=== PATIENT | female | born 1975 | race African-American/Black ===

== ENCOUNTER 2016-08-21 18:26 | Emergency (ER) | payer MEDICARE, OTHER ==
[~2016-08-21] VITALS: Ht 172.7 cm; Wt 68.0 kg
[~2016-08-21 18:26] MED LIST: ADVAIR 250/501 PUFFS INH; ALBUTEROL SULF8.5 GM INH; ATIVAN2 MG ORAL; AUGMENTIN XR 11 EACH ORAL; AZITHROMYCIN250 MG ORAL; AZITHROMYCIN250 MG PO; BACITRACIN15 GM TOPIC; BACTRIM DS TAB1 EAC1 ORAL; COLACE100 MG ORAL; CYCLOBENZAPRINE10 MG ORAL; DAILY MULTIPLE1 EAC1 PO; ERYTHROMYCIN3.5 GM LEFT EYE; FLONASE1 SPRAYS NASAL; FOLIC ACID0.4 MG ORAL; GABAPENTIN300 MG ORAL; GABAPENTIN300 MG/61 ORAL; HYDROCODON-ACE1 EA15 ORAL; HYDROXYZINE HCL25 M1 PO; IBUPROFEN600 MG ORAL; KEFLEX500 MG ORAL; KLONOPIN0.5 MG ORAL; LAMICTAL150 MG ORAL; LEVAQUIN500 MG ORAL; LORAZEPAM1 MG ORAL; NORCO 10-325 T1 EACH ORAL; NORCO 5-325 TA1 EACH ORAL; OMEPRAZOLE20 M3 ORAL; PERCOCET 5-3251 EACH ORAL; PREDNISOLO15 MG/5 M1 ORAL; PREDNISONE10 MG ORAL; PREDNISONE20 MG ORAL; PROTONIX40 M2 PO; RANITIDINE HCL150 MG PO; REMERON15 M1 ORAL; ROBITUSSIN COU118 M4 PO; SAPHRIS10 MG SL; SILVADENE CREAM50 GM TOP; SINGULAIR10 MG ORAL; SOMA350 MG ORAL; SOMA350 MG PO; TEMAZEPAM15 MG ORAL; TOPAMAX25 M1 ORAL; TRAZODONE HCL150 MG ORAL; TYLENOL #31 TAB PO; VALIUM5 MG ORAL; WARFARIN SODIU7.5 MG ORAL; XARELTO10 MG ORAL; ZITHROMAX250 MG ORAL; ZOFRAN4 MG ORAL
[2016-08-21 19:15] VITALS: BP 123/80
[2016-08-21] MEDS ORDERED: Bacitracin Oint UD TOPIC ONE (21:00)
[2016-08-21] MEDS: Acetaminophen 500mg (ES) tab ORAL ONE (21:06)
[2016-08-21] MEDS ORDERED: Tylenol #3 tab (300mg/30mg) ORAL ONE (21:45)
--- NOTE | 2016-08-21 22:04 | Emergency Room Report ---
History of Present Illness General Chief Complaint: General Complaint Source: Patient, Medical Record Present Illness HPI 40-year-old female presents to emergency Department complaining of open lesion to the right lower lip x4 days that is sensitive and painful. Patient reports history of lesion in the past and her doctor stated it was scar tissue. Patient denies history of STDs or herpes. She also reports pain in the third and fourth toes of the left foot times one day patient states she accidentally stubbed her foot. Patient reports tenderness to palpation and pain is 10/ 10in severity, and localized to the distal aspects of the toes. Patient also reports small laceration sustained after stubbing her toe. Patient states she has a history of lupus. She denies nausea, vomiting, fevers, chills. Denies numbness tingling or loss of sensation or gross motor movements of the extremities, incontinence of bowel or bladder. Denies CP, Palpitations, LOC, AMS , dizziness, Changes in Vision, Sensation, paresthesias, or a sudden severe headache. Allergies: Coded Allergies: LITHIUM (Verified Allergy, Mild, Anaphylaxis, 05/24/13) MORPHINE (Verified Adverse Reaction, Unknown, itching, 05/09/15) Patient states tolerates PO morphine. IV causes itching Patient History Past Medical History: see triage record Past Surgical History: none Pertinent Family History: none Last Menstrual Period: 08/08/16 Now: No Immunizations: UTD Reviewed Nursing Documentation: PMH: Agreed, PSxH: Agreed Nursing Documentation-PM Past Medical History: No History, Except For Hx Cardiac Problems: Yes - Irregular heartbeat, Lupus Hx Hypertension: No - PE, DVT Hx Pacemaker: No Hx Asthma: Yes Hx COPD: No Hx Diabetes: Yes Hx Cancer: No Hx Gastrointestinal Problems: Yes - gastric bypass 2012 Hx Dialysis: No Hx Neurological Problems: No Hx Cerebrovascular Accident: No Hx Transient Ischemic Attacks: No Hx Dementia: No Hx Alzheimer's Disease: No Hx Parkinson's Disease: No Hx Meningitis: No Hx Encephalitis: No Hx Seizures: Yes Hx Epilepsy: No Hx Multiple Sclerosis: No Hx Cerebral Palsy: No Hx Amyotrophic Lat Sclerosis: No Hx Guillian-[place] Syndrome: No Hx Paralysis: No Hx Peripheral Neuropathy: No Hx Spinal Cord Injury: No Hx Head Trauma: No Hx Traumatic Brain Injury: No Hx Memory Loss: No Hx Concentration Difficulty: No Hx Speech Problem: No Hx Tremors: No Hx Vertigo: No Hx Dizziness: No Hx Syncope: No Hx Headaches: No Hx Aphasia: No Hx Dysphasia: No Hx Numbness: No Hx Weakness: No Hx Fatigue: No Hx Neurologic Surgery: No Hx Brain Shunt: No Review of Systems All Other Systems: negative except mentioned in HPI Physical Exam Vital Signs Date Time Temp Pulse Resp B/P Pulse Ox O2 Delivery O2 Flow Rate FiO2 08/21/16 18:59 98.2 100 16 123/80 100 Room Air Sp02 EP Interpretation: reviewed, normal General Appearance: no apparent distress, alert, GCS 15, non-toxic Head: normocephalic, atraumatic Eyes: bilateral eye PERRL, bilateral eye normal inspection ENT: hearing grossly normal, normal pharynx, no angioedema, normal voice, other - right side of lower lip has vessicular lesions, and some open lesions with crusting and erythema noted possible secondary infection. Neck: full range of motion, supple/symm/no masses Respiratory: chest non-tender, lungs clear, normal breath sounds, speaking full sentences Cardiovascular #1: regular rate, rhythm, no edema Musculoskeletal: back normal, gait/station normal, normal range of motion, no calf tenderness, tender - TTP to distal 3rd and 4th toes of the left foot, mild bruise noted, mild swelling. Neurologic: alert, oriented x3, responsive, motor strength/tone normal, sensory intact, speech normal Psychiatric: judgement/insight normal, memory normal, mood/affect normal, no suicidal/homicidal ideation Skin: normal inspection, normal color, normal turgor, other - small 0.2cm superficial non-bleeding laceration of the left 3rd toe Lymphatic: no adenopathy Procedures Splinting Splinting : Consent: Verbal Location: left foot Splint: walking boot Pre-Proc Neuro Vasc Exam: normal Post-Proc Neuro Vasc Exam: normal Patient Tolerated: Well Complications: None Medical Decision Making PA Attestation Dr. Poole is my supervising Physician whom patient management has been discussed with. Diagnostic Impression: Primary Impression: Oral lesion Additional Impressions: Toe fracture, left Qualified Codes: S92.535A - Nondisplaced fracture of distal phalanx of left lesser toe(s), initial encounter for closed fracture Abrasion ER Course Pt. presents to the ED c/o Painful open lesion to the right lower lip x4 days in addition to distal toe pain of the left foot status post upping her foot and sustaining a small laceration. Ddx considered but are not limited to Fracture, dislocation, contusion, Sprain/ Strain/Spasm, Epidural abscess, Neoplastic mets. Vital signs: are WNL, pt. is afebrile H&PE are most consistent with oral lesion suspicious for herpes, crusting also indicate possible secondary bacterial infection. Contusion of the left 3rd and 4th toes suspected will r/o fracture with imaging. ORDERS: - X-ray Left foot 3 views - possible distal left 3rd toe fracture, per preliminary read in ED by Dr. Poole ED INTERVENTIONS: -Tylenol #3 PO - Walking boot Splint applied to the left foot by geological technical officer. Pt. remains neurovascularly intact. -Bacitracin and band-aid is applied to the small 0.2cm superficial non-bleeding laceration of the left 3rd toe DISCHARGE: At this time pt. is stable for d/c to home. Will provide printed patient care instructions, and any necessary prescriptions. Care plan and follow up instructions have been discussed with the patient prior to discharge. Last Vital Signs Date Time Temp Pulse Resp B/P Pulse Ox O2 Delivery O2 Flow Rate FiO2 08/21/16 19:15 98.2 16 123/80 100 Room Air 08/21/16 18:59 100 Disposition: HOME, SELF-CARE Condition: Stable Scripts Cephalexin* (KEFLEX*) 500 Mg Capsule 500 MG ORAL EVERY 12 HOURS for 7 Days, #14 CAP 0 Refills Prov: Leia North P.A. 08/21/16 Acetaminophen With Codeine (T#3) (TYLENOL #3 TAB*) Y Tab 1 TAB ORAL Q6HR Y for For Pain, #10 TAB Prov: Leia North P.A. 08/21/16 Lidocaine HCl (Aspercreme) 76.5 Gm Cream..g. 1 APPLIC TP TID for For Pain, #76.5 GM Prov: Leia North P.A. 08/21/16 Valacyclovir Hcl* (VALTREX*) 500 Mg Tablet 1000 MG ORAL TWICE A DAY for 7 Days, #14 TAB Prov: Nick Northie P.A. 08/21/16 Referrals: AROLDO CASTANEDA (PCP) Patient Instructions: Toe Fracture, [id number], Valacyclovir caplets Additional Instructions: Take medications as directed. Follow up with PCP in 3-5 days * follow up with radiosonde specialist as needed * Return sooner to ED if new symptoms occur, or current symptoms become worse. Leia North Aug 21, 2016 22:04
[2016-08-21] MEDS ORDERED: ACETAMINOPHEN-1 EAC1 ORAL (22:10)
[2016-08-21] MEDS ORDERED: CEPHALEXIN500 MG ORAL (22:10)
[2016-08-21] MEDS ORDERED: ASPERCREME76.5 GM TP (22:10)
[2016-08-21] MEDS ORDERED: VALACYCLOVIR500 MG ORAL (22:10)
[2016-08-21 22:25] VITALS: BP 118/82
--- NOTE | 2016-08-29 14:59 | Diagnostic Imaging Report ---
Indications: Blunt trauma to left foot, pain Technique: 3 views left foot. Findings: Comparison: None No fracture, dislocation, joint space widening , surrounding soft tissue swelling/foreign body/other abnormality, or other acute changes are identified. IMPRESSION: No evidence of acute injury to left foot.
== END 2016-08-21 22:27 | disposition home or self-care (01) ==
LOC: EMR 19:52
DX: K13.70 Unspecified lesions of oral mucosa (principal); S92.535A Nondisplaced fracture of distal phalanx of left lesser toe(s), initial encounter for closed fracture; Z88.8 Allergy status to other drugs, medicaments and biological substances; Z88.6 Allergy status to analgesic agent; M32.9 Systemic lupus erythematosus, unspecified; Z86.711 Personal history of pulmonary embolism; Z86.718 Personal history of other venous thrombosis and embolism; J45.909 Unspecified asthma, uncomplicated; E11.9 Type 2 diabetes mellitus without complications; Z98.84 Bariatric surgery status; X58.XXXA Exposure to other specified factors, initial encounter; Y92.9 Unspecified place or not applicable; Y99.8 Other external cause status
CPT/HCPCS: 99283

== ENCOUNTER 2016-09-29 01:43 | Emergency (ER) | payer MEDICARE, OTHER ==
[~2016-09-29] VITALS: Ht 160 cm; Wt 67.6 kg
[~2016-09-29 01:43] MED LIST changes: +ACETAMINOPHEN-1 EAC1 ORAL; +ASPERCREME76.5 GM TP; +CEPHALEXIN500 MG ORAL; +VALACYCLOVIR500 MG ORAL
[2016-09-29] MEDS ORDERED: Bactrim DS (160mg/800mg) tab ORAL ONE (02:45)
[2016-09-29] MEDS ORDERED: GABAPENTIN300 MG ORAL (02:53)
[2016-09-29] MEDS ORDERED: XARELTO20 MG ORAL (02:53)
[2016-09-29] MEDS ORDERED: HYDROCODON-ACE1 EA15 ORAL (02:53)
[2016-09-29] MEDS ORDERED: PREDNISONE20 MG ORAL (02:53)
[2016-09-29] MEDS ORDERED: BACTRIM DS TAB1 EAC1 ORAL (02:53)
--- NOTE | 2016-09-29 02:54 | Emergency Room Report ---
History of Present Illness General Chief Complaint: General Complaint Source: Patient Present Illness HPI Is a 40-year-old female with history of lupus. She said she is out of her medication. She wants a refill. She also complaining of lesion on her lip and face. He getting worse. Now to her back. Denies any fever chills denies any nausea vomiting. Was draining. No other complaint. Also with generalized pain. She requesting refills on her medication. Allergies: Coded Allergies: LITHIUM (Verified Allergy, Mild, Anaphylaxis, 05/24/13) MORPHINE (Verified Adverse Reaction, Unknown, itching, 05/09/15) Patient states tolerates PO morphine. IV causes itching Patient History Past Medical History: see triage record, old chart reviewed Past Surgical History: other Pertinent Family History: none Social History: Denies: drug use Last Menstrual Period: LAST WEEK Now: No Reviewed Nursing Documentation: PMH: Agreed, PSxH: Agreed Nursing Documentation-PMH Hx Cardiac Problems: Yes - Irregular heartbeat, Lupus Hx Hypertension: No - PE, DVT Hx Pacemaker: No Hx Asthma: Yes Hx COPD: No Hx Diabetes: Yes Hx Cancer: No Hx Gastrointestinal Problems: Yes - gastric bypass 2012 Hx Dialysis: No Hx Neurological Problems: No Hx Cerebrovascular Accident: No Hx Transient Ischemic Attacks: No Hx Dementia: No Hx Alzheimer's Disease: No Hx Parkinson's Disease: No Hx Meningitis: No Hx Encephalitis: No Hx Seizures: Yes Hx Epilepsy: No Hx Multiple Sclerosis: No Hx Cerebral Palsy: No Hx Amyotrophic Lat Sclerosis: No Hx Guillian-[place] Syndrome: No Hx Paralysis: No Hx Peripheral Neuropathy: No Hx Spinal Cord Injury: No Hx Head Trauma: No Hx Traumatic Brain Injury: No Hx Memory Loss: No Hx Concentration Difficulty: No Hx Speech Problem: No Hx Tremors: No Hx Vertigo: No Hx Dizziness: No Hx Syncope: No Hx Headaches: No Hx Aphasia: No Hx Dysphasia: No Hx Numbness: No Hx Weakness: No Hx Fatigue: No Hx Neurologic Surgery: No Hx Brain Shunt: No Review of Systems Eye: Denies: blurred vision, eye pain ENT: Denies: ear pain, nose congestion, throat swelling Respiratory: Denies: cough, shortness of breath Cardiovascular: Denies: chest pain, palpitations Gastrointestinal: Denies: abdominal pain, diarrhea, nausea, vomiting Musculoskeletal: Denies: back pain, joint pain Skin: Denies: rash Neurological: Denies: headache, numbness Endocrine: Denies: increased thirst, increased urine Hematologic/Lymphatic: Denies: easy bruising All Other Systems: negative except mentioned in HPI Physical Exam Vital Signs Date Time Temp Pulse Resp B/P Pulse Ox O2 Delivery O2 Flow Rate FiO2 09/29/16 01:46 97.9 111 18 119/72 100 vitals with tachycardia Sp02 EP Interpretation: reviewed, normal General Appearance: well appearing, no apparent distress, alert Head: normocephalic, atraumatic Eyes: bilateral eye EOMI, bilateral eye PERRL ENT: hearing grossly normal, normal pharynx, other - Right face and lip: Ulcerated lesion probably from skin picking. Neck: full range of motion, supple, no meningismus Respiratory: chest non-tender, lungs clear, normal breath sounds Cardiovascular #1: regular rate, rhythm, no murmur Gastrointestinal: normal bowel sounds, non tender, no mass, no organomegaly, no bruit, non-distended Musculoskeletal: back normal, gait/station normal, normal range of motion Neurologic: alert, oriented x3 Psychiatric: mood/affect normal Skin: warm/dry, rash - Ulcerated lesion on her back. No drainage. Mild redness. Medical Decision Making Diagnostic Impression: Primary Impression: Cellulitis Qualified Codes: L03.90 - Cellulitis, unspecified Additional Impressions: Opioid dependence Qualified Codes: F11.20 - Opioid dependence, uncomplicated History of cocaine abuse Lupus (systemic lupus erythematosus) Qualified Codes: M32.9 - Systemic lupus erythematosus, unspecified Medication refill ER Course Patient with cellulitis on her face and back. Most likely from picking. This may be secondary to cocaine in or other drugs. Local and placed on antibiotics. I will refill some her medication. Last Vital Signs Date Time Temp Pulse Resp B/P Pulse Ox O2 Delivery O2 Flow Rate FiO2 09/29/16 01:46 97.9 111 18 119/72 100 Status: improved Disposition: HOME, SELF-CARE Condition: Stable Scripts Prednisone* (PREDNISONE*) 20 Mg Tablet 10 MG ORAL TID, #15 TAB Prov: CANDACE PINEDA M.D. 09/29/16 Rivaroxaban (XARELTO) 20 Mg Tablet 20 MG ORAL DAILY for 30 Days, MG 0 Refills Prov: CANDACE PINEDA M.D. 09/29/16 Gabapentin* (GABAPENTIN*) 300 Mg Capsule 300 MG ORAL THREE TIMES A DAY, #90 CAP 0 Refills Prov: CANDACE PINEDA M.D. 09/29/16 Hydrocodone/Acetaminophen 5-325* (HYDROCODONE/ACETAMINOPHEN 5-325*) 1 Each Tablet 1 TAB ORAL Q6H Y for For Pain, #15 TAB 0 Refills Prov: CANDACE PINEDA M.D. 09/29/16 Trimethoprim/Sulfamethoxazole 160/800* (BACTRIM DS TABLET*) 1 Each Tablet 1 TAB ORAL Q12H, #14 TAB 0 Refills Prov: CANDACE PINEDA M.D. 09/29/16 Referrals: NON PHYSICIAN (PCP) Additional Instructions: Followup with your DrTran in 2 to 3 days. Return if worse. CANDACE PINEDA M.D. Sep 29, 2016 02:54
[2016-09-29 03:05] VITALS: BP 119/72
== END 2016-09-29 03:05 | disposition home or self-care (01) ==
LOC: EMR 02:00
DX: M32.9 Systemic lupus erythematosus, unspecified (principal); L03.90 Cellulitis, unspecified; F11.20 Opioid dependence, uncomplicated; Z76.0 Encounter for issue of repeat prescription; E11.9 Type 2 diabetes mellitus without complications; J45.909 Unspecified asthma, uncomplicated; Z98.84 Bariatric surgery status; Z88.6 Allergy status to analgesic agent; Z88.8 Allergy status to other drugs, medicaments and biological substances; Z86.711 Personal history of pulmonary embolism; Z86.718 Personal history of other venous thrombosis and embolism
CPT/HCPCS: 99284

== ENCOUNTER 2016-11-27 03:52 | Emergency (ER) | payer MEDICARE, OTHER ==
[~2016-11-27] VITALS: Ht 160 cm; Wt 65.8 kg
[~2016-11-27 03:52] MED LIST changes: +XARELTO20 MG ORAL
[2016-11-27 05:13] LABS: BASOPHILS % (AUTO) 0.8 % (0.0-2.0); EOSINOPHILS % (AUTO) 1.8 % (0.0-3.0); LYMPHOCYTES % (AUTO) 44.2 % (20.0-45.0); MEAN CORPUSCULAR HEMOGLOBIN 24.5 PG (27.0-31.0); MEAN CORPUSCULAR HGB CONC 29.9 G/DL (32.0-36.0); MEAN CORPUSCULAR VOLUME 82 FL (80-99); MEAN PLATELET VOLUME 8.2 FL (6.5-10.1); MONOCYTES % (AUTO) 9.3 % (1.0-10.0); NEUTROPHILS % (AUTO) 43.9 % (45.0-75.0); PLATELET COUNT 273 K/UL (150-450); RED BLOOD COUNT 4.42 M/UL (4.20-5.40); RED CELL DISTRIBUTION WIDTH 16.6 % (11.6-14.8); WHITE BLOOD COUNT 4.7 K/UL (4.8-10.8)
[2016-11-27 05:23] LABS: INR 0.9 (0.9-1.1); PROTHROMBIN TIME 9.4 SEC (9.30-11.50)
[2016-11-27 05:29] LABS: ALANINE AMINOTRANSFERASE 43 U/L (3-33); ALBUMIN/GLOBULIN RATIO 1.2 (1.0-2.7); ANION GAP 15 (5-15); ASPARTATE AMINO TRANSFERASE 29 U/L (5-40); CALCIUM 8.8 mg/dL (8.6-10.2); CARBON DIOXIDE 25 mEQ/L (20-30); CHLORIDE 102 mEQ/L (98-107); CREATININE 0.7 mg/dL (0.5-0.9); GLOMERULAR FILTRATION RATE > 60 mL/min (>60); HEMOLYSIS 2; POTASSIUM 3.6 mEQ/L (3.4-4.9); SODIUM 142 mEQ/L (135-145); TROPONIN I < 0.30 ng/mL (<=0.30)
[2016-11-27 05:40] LABS: THYROID STIMULATING HORMONE 0.846 uIU/mL (0.300-4.500)
[2016-11-27] MEDS ORDERED: Bacitracin Oint UD TOPIC ONE (06:00)
[2016-11-27] MEDS ORDERED: Bactrim DS (160mg/800mg) tab ORAL ONE (06:00)
[2016-11-27 06:06] VITALS: BP 131/69
[2016-11-27 06:21] LABS: ERYTHROCYTE SEDIMENTATION RATE 34 MM/HR (0-20)
[2016-11-27] MEDS ORDERED: Albuterol ud Inhalation HHN ONE ×2 (06:30→07:30)
[2016-11-27] MEDS ORDERED: Ketorolac 30mg Inj IV ONE (06:30)
[2016-11-27] MEDS ORDERED: Tylenol #3 tab (300mg/30mg) ORAL ONE (06:45)
[2016-11-27 07:22] VITALS: BP 127/78
[2016-11-27] MEDS ORDERED: Ipratropium 0.02% Inh Soln 2.5ml UD HHN ONE (07:30)
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
[2016-11-27] MEDS ORDERED: PROMETHAZINE-D118 ML ORAL (08:14)
[2016-11-27] MEDS ORDERED: ALBUTEROL SULF8.5 GM INH (08:14)
[2016-11-27] MEDS ORDERED: BACITRACIN15 GM TOPIC (08:14)
[2016-11-27] MEDS ORDERED: BACTRIM DS TAB1 EAC1 ORAL (08:14)
[2016-11-27 09:41] VITALS: BP 132/77
--- NOTE | 2016-11-27 11:54 | Diagnostic Imaging Report ---
Indication: Chest pain Technique: One view of the chest Comparison: 01/15/2016 Findings: Lungs and pleural spaces are clear. Heart size is normal . No significant change Impression: No acute process This agrees with the preliminary interpretation provided by the emergency room physician
--- NOTE | 2016-11-27 13:40 | Cardiology Report ---
APPROVED REPORT EKG Measurement Heart [id number] ID [id number] Normal sinus rhythm T wave abnormality, consider anterior ischemia Abnormal ECG
== END 2016-11-27 09:44 | disposition home or self-care (01) ==
LOC: EMR 06:00
DX: R06.00 Dyspnea, unspecified (principal); L03.818 Cellulitis of other sites; J98.01 Acute bronchospasm; F19.10 Other psychoactive substance abuse, uncomplicated; F31.9 Bipolar disorder, unspecified; Z98.84 Bariatric surgery status; Z86.718 Personal history of other venous thrombosis and embolism; M32.9 Systemic lupus erythematosus, unspecified; Z88.6 Allergy status to analgesic agent; Z88.8 Allergy status to other drugs, medicaments and biological substances; F17.200 Nicotine dependence, unspecified, uncomplicated; E11.9 Type 2 diabetes mellitus without complications; Z86.711 Personal history of pulmonary embolism; R07.9 Chest pain, unspecified; Y09 Assault by unspecified means; Y92.009 Unspecified place in unspecified non-institutional (private) residence as the place of occurrence of the external cause; Y99.8 Other external cause status
CPT/HCPCS: 36415; 71010; 80053; 80300; 81025; 82550; 83880; 84443; 84484; 85025; 85379; 85610; 85651; 85730; 93005; 94640; 94664; 99284

== ENCOUNTER 2017-03-25 18:28 | Inpatient (IN) | payer MEDICARE, OTHER ==
[~2017-03-25] VITALS: Ht 165.1 cm; Wt 62.6 kg
[~2017-03-25 18:28] MED LIST changes: +PROMETHAZINE-D118 ML ORAL
[2017-03-25 18:42] VITALS: BP 123/78
[2017-03-25 19:25] LABS: ALANINE AMINOTRANSFERASE 18 U/L (3-33); ALBUMIN/GLOBULIN RATIO 1.6 (1.0-2.7); ANION GAP 14 (5-15); ASPARTATE AMINO TRANSFERASE 17 U/L (5-40); CALCIUM 9.2 mg/dL (8.6-10.2); CARBON DIOXIDE 24 mEQ/L (20-30); CHLORIDE 101 mEQ/L (98-107); CREATININE 0.8 mg/dL (0.5-0.9); GLOMERULAR FILTRATION RATE > 60 mL/min (>60); HEMOLYSIS 6; MAGNESIUM 2.2 mg/dL (1.7-2.5); POTASSIUM 3.5 mEQ/L (3.4-4.9); SODIUM 139 mEQ/L (135-145); TOTAL PROTEIN 6.9 g/dL (6.6-8.7)
--- NOTE | 2017-03-25 19:36 | Emergency Room Report ---
History of Present Illness General Chief Complaint: Generalized Weakness Source: Patient Present Illness HPI 41YOF BIBEMS from home for AMS Mom called EMS Patient not providing any history Previous visits indicate amphetamine, marijuana abuse. ?depression, psych history EMS said stable vitals on scene Allergies: Coded Allergies: LITHIUM (Verified Allergy, Mild, Anaphylaxis, 05/24/13) MORPHINE (Verified Adverse Reaction, Unknown, itching, 05/09/15) Patient states tolerates PO morphine. IV causes itching Patient History Past Medical History: unable to obtain Past Surgical History: unable to obtain Pertinent Family History: unable to obtain Last Menstrual Period: UNK Nursing Documentation-PMH Hx Hypertension: No - PE, DVT Hx Pacemaker: No Hx Asthma: Yes Hx COPD: No Hx Diabetes: Yes Hx Cancer: No Hx Gastrointestinal Problems: Yes - Gastric bipass Hx Dialysis: No Hx Cerebrovascular Accident: No Hx Transient Ischemic Attacks: No Hx Dementia: No Hx Alzheimer's Disease: No Hx Parkinson's Disease: No Hx Meningitis: No Hx Encephalitis: No Hx Seizures: Yes Hx Epilepsy: No Hx Multiple Sclerosis: No Hx Cerebral Palsy: No Hx Amyotrophic Lat Sclerosis: No Hx Guillian-[place] Syndrome: No Hx Paralysis: No Hx Peripheral Neuropathy: No Hx Spinal Cord Injury: No Hx Head Trauma: No Hx Traumatic Brain Injury: No Hx Memory Loss: No Hx Concentration Difficulty: No Hx Speech Problem: No Hx Tremors: No Hx Vertigo: No Hx Dizziness: No Hx Syncope: No Hx Headaches: No Hx Aphasia: No Hx Dysphasia: No Hx Numbness: No Hx Weakness: No Hx Fatigue: No Hx Neurologic Surgery: No Hx Brain Shunt: No Review of Systems All Other Systems: limited - AMS Physical Exam Vital Signs Date Time Temp Pulse Resp B/P Pulse Ox O2 Delivery O2 Flow Rate FiO2 03/25/17 18:31 100 18 122/76 16 Room Air 03/25/17 18:42 97.7 Sp02 EP Interpretation: reviewed, normal General Appearance: normal inspection, well appearing, no apparent distress, alert, GCS 15, non-toxic Head: normocephalic, atraumatic Eyes: bilateral eye EOMI, bilateral eye PERRL ENT: normal ENT inspection, hearing grossly normal, normal voice Neck: normal inspection, full range of motion, supple, no bony tend Respiratory: normal inspection, lungs clear, normal breath sounds, no respiratory distress, no retraction, no wheezing Cardiovascular #1: regular rate, rhythm, no edema Gastrointestinal: normal inspection, normal bowel sounds, non tender, soft, no guarding, no hernia Genitourinary: no CVA tenderness Musculoskeletal: normal inspection, back normal, normal range of motion, Adolfo' s Sign negative Neurologic: normal inspection, alert, responsive, transfer knitter III-XII nml as tested, motor strength/tone normal, speech normal Psychiatric: normal inspection, judgement/insight normal, mood/affect normal Skin: normal inspection, normal color, no rash Medical Decision Making Diagnostic Impression: Primary Impression: Altered mental status Qualified Codes: R41.82 - Altered mental status, unspecified Additional Impression: Polysubstance abuse ER Course Labs: No leuks. H&H stable. UA negative for UTI CT head normal Utox + for MJ, meth Was hydrated in ED Admit tele Dr Duong 934pm EKG Diagnostic Results Rate: normal Rhythm: NSR ST Segments: no acute changes ASA given to the pt in ED: No Rhythm Strip Diag. Results EP Interpretation: yes Rate: 88 Rhythm: NSR, no PVC's, no ectopy Last Vital Signs Date Time Temp Pulse Resp B/P Pulse Ox O2 Delivery O2 Flow Rate FiO2 03/25/17 18:42 97.7 92 19 123/78 100 Room Air Status: improved Disposition: ADMITTED INPATIENT Condition: Serious Referrals: NOT CHOSEN IPA/,REFERRING (PCP) ZENAIDA LINDSEY M.D. Mar 25, 2017 19:36
[2017-03-25 19:38] LABS: BASOPHILS % (AUTO) 1.4 % (0.0-2.0); EOSINOPHILS % (AUTO) 1.3 % (0.0-3.0); LYMPHOCYTES % (AUTO) 35.5 % (20.0-45.0); MEAN CORPUSCULAR HEMOGLOBIN 24.6 PG (27.0-31.0); MEAN CORPUSCULAR HGB CONC 30.7 G/DL (32.0-36.0); MEAN CORPUSCULAR VOLUME 80 FL (80-99); MEAN PLATELET VOLUME 6.9 FL (6.5-10.1); MONOCYTES % (AUTO) 7.9 % (1.0-10.0); NEUTROPHILS % (AUTO) 53.9 % (45.0-75.0); PLATELET COUNT 289 K/UL (150-450); RED BLOOD COUNT 3.89 M/UL (4.20-5.40); RED CELL DISTRIBUTION WIDTH 17.1 % (11.6-14.8)
[2017-03-25 20:36] LABS: APPEARANCE,URINE CLEAR; KETONES,URINE 1+ (NEGATIVE); LEUKOCYTE ESTERASE ,URINE 1+ (NEGATIVE); NITRITE,URINE NEGATIVE (NEGATIVE); PH,URINE 8 (4.5-8.0); PROTEIN,URINE NEGATIVE (NEGATIVE); UROBILINOGEN,URINE 4 MG/DL (0.0-1.0)
[2017-03-25 20:58] LABS: BACTERIA,URINE FEW /HPF; RBC,URINE 0-2 /HPF (0 - 2); SQUAMOUS EPITHELIAL CELL,UR FEW /LPF (NONE/OCC)
[2017-03-25 22:40] VITALS: BP 137/90
[2017-03-26] MEDS ORDERED: clonazePAM 0.5mg tab ORAL PRN
[2017-03-26] MEDS ORDERED: Milk of Magnesia 30ml Ud ORAL PRN (00:15)
[2017-03-26] MEDS: NS w/KCl 20mEq 1,000 ML IV SCH ×3 (01:00→16:30)
--- NOTE | 2017-03-26 03:45 | History and Physical Report ---
DATE OF ADMISSION: 03/25/2017 REASON FOR ADMISSION: Altered mentation. HISTORY OF PRESENT ILLNESS: This is a 41-year-old female. She lives with her daughter. She has a longstanding history of psychiatric disorder as well as substance abuse. She was hospitalized here in the past with cocaine intoxication. On this occasion, the patient is unable to give any history. She states that she wants to leave. She feels that she is being persecuted and feels unsafe. Her mother states that the patient was quite confused and exhibiting bizarre behaviors, although details are not presently available. EMS was contacted. The patient's vitals were stable on arrival. PAST MEDICAL HISTORY: Obtained from records is notable for history of DVT. In addition, the patient complained of chest pain. About a year ago, she was hospitalized and had a negative cardiac workup that included an echocardiogram and perfusion scan. MEDICATIONS: Prior to admission, reviewed and reconciled. ALLERGIES: Include lithium and morphine. SOCIAL HISTORY: Notable for substance abuse as described above. FAMILY HISTORY: Noncontributory. REVIEW OF SYSTEMS: Not obtainable from the patient. PHYSICAL EXAMINATION: GENERAL: She is belligerent. She is in no acute distress. VITAL SIGNS: Blood pressure 122/76, heart rate 100, respiratory rate 18, she is afebrile. HEENT: Pupils are equal, round, and reactive to light and accommodation. Extraocular movements intact. Oropharynx clear with no thrush. NECK: Supple with no adenopathy. No accessory muscle use. LUNGS: Clear. BREASTS: Without discrete masses. CARDIAC: Regular rhythm. Rapid rate. Normal S1 and S2 with no murmur. ABDOMEN: Soft and nontender. EXTREMITIES: No cords or edema. NEUROLOGIC: Reveals slight resting tremor, no asterixis, and symmetric strength. LABORATORY AND DIAGNOSTIC DATA: Electrocardiogram revealed sinus rhythm with no acute abnormalities. White count 6, hemoglobin 9.6, MCV 80, sodium 139, potassium 3.5, bicarbonate 24, BUN 8, and creatinine 0.8. Albumin 4.3. Urinalysis reveals 2 to 4 white cells and the toxicology screen is notable for amphetamines and marijuana. IMPRESSION: 1. Methamphetamine intoxication. 2. Toxic encephalopathy. 3. History of depression with psychosis. 4. History of deep vein thrombosis on chronic anticoagulation. 5. Microcytic anemia. 6. Mild hypovolemia and dehydration. PLAN: 1. Cardiac monitoring. 2. Psychiatric consultation. 3. Sitter for safety. 4. Avoid narcotic analgesic. 5. Continue anticoagulation. 6. Check stool for occult blood. 7. Metabolic profile. 8. Iron panel. 9. Cautious titration of psychiatric drugs. 10. Hydrate. 11. Seizure precautions. 12. Arrhythmia precautions. Mickey Duong M.D. DR: MIR JOB#: [id number] CC:
--- NOTE | 2017-03-26 10:13 | Diagnostic Imaging Report ---
Indication: Altered mental status Technique: Continuous helical CT scanning of the head was performed without intravenous contrast material. Axial and coronal 5 mm sections were generated. Radiation dose was minimized using automated exposure control Dose: Total Dose Length Product - DLP [address] Dose Index - CTDIvol(s) 70.38 mGy. Comparison: 01/15/2016 Findings: The ventricular system is normal in size and configuration. There is no shift of midline structures. No abnormal extra-axial fluid collections are noted. There is no evidence of intracerebral bleeding. No other abnormal high or low density areas are noted within the brain. Intact calvarium. There is minimal left maxillary sinus disease. Visualized orbits and sinuses are unremarkable. Impression: Normal CT scan of the head without contrast material. Minimal sinus disease This agrees with the preliminary interpretation provided overnight by [facility] teleradiology service. The CT scanner at [facility] is accredited by the [employer] [place] and the scans are performed using protocols designed to limit radiation exposure to as low as reasonably achievable to attain images of sufficient resolution adequate for diagnostic evaluation.
[2017-03-26] MEDS: LaMICtal 150mg tab ORAL SCH (10:18)
[2017-03-26 10:30] VITALS: BP 120/71
--- NOTE | 2017-03-26 11:17 | Diagnostic Imaging Report ---
Indication: SOB Technique: One view of the chest Comparison: none Findings: Lungs and pleural spaces are clear. Heart size is normal. No significant interim change Impression: No acute process
[2017-03-26 12:00] VITALS: BP 115/78
[2017-03-26 12:56] LABS: BASOPHILS % (AUTO) 0.8 % (0.0-2.0); EOSINOPHILS % (AUTO) 1.3 % (0.0-3.0); MEAN CORPUSCULAR HEMOGLOBIN 24.9 PG (27.0-31.0); MEAN CORPUSCULAR HGB CONC 30.8 G/DL (32.0-36.0); MEAN CORPUSCULAR VOLUME 81 FL (80-99); MEAN PLATELET VOLUME 6.6 FL (6.5-10.1); MONOCYTES % (AUTO) 9.3 % (1.0-10.0); NEUTROPHILS % (AUTO) 65.6 % (45.0-75.0); PLATELET COUNT 313 K/UL (150-450); RED BLOOD COUNT 4.15 M/UL (4.20-5.40); RED CELL DISTRIBUTION WIDTH 16.9 % (11.6-14.8); WHITE BLOOD COUNT 5.6 K/UL (4.8-10.8)
[2017-03-26 13:10] LABS: ALANINE AMINOTRANSFERASE 17 U/L (3-33); ALBUMIN/GLOBULIN RATIO 1.5 (1.0-2.7); ANION GAP 12 (5-15); ASPARTATE AMINO TRANSFERASE 15 U/L (5-40); CALCIUM 8.8 mg/dL (8.6-10.2); CARBON DIOXIDE 22 mEQ/L (20-30); CHLORIDE 104 mEQ/L (98-107); CREATININE 0.6 mg/dL (0.5-0.9); GLOMERULAR FILTRATION RATE > 60 mL/min (>60); HEMOLYSIS 1; MAGNESIUM 1.9 mg/dL (1.7-2.5); POTASSIUM 3.9 mEQ/L (3.4-4.9); SODIUM 138 mEQ/L (135-145)
[2017-03-26 13:15] LABS: HEMOLYSIS 3; IRON 65 ug/dL (37-145); TOTAL IRON BINDING CAPACITY 580 ug/dL (250-400)
[2017-03-26 13:21] LABS: THYROID STIMULATING HORMONE 0.671 uIU/mL (0.300-4.500)
[2017-03-26 13:26] LABS: AMMONIA 28 umol/L (11-51)
[2017-03-26 16:00] VITALS: BP 106/61
[2017-03-26] MEDS: Xarelto 10mg tab ORAL SCH (17:55)
--- NOTE | 2017-03-26 19:53 | Consultation ---
History of Present Illness General Chief Complaint: Generalized Weakness Present Illness HPI 41-year-old female. the pt has hx of psychotic d/o, bipolar and ptsd. She lives with her daughter. She has a longstanding history of psychiatric disorder as well as substance abuse. She was hospitalized here in the past with cocaine intoxication. the pt apparently was confused this am however during my eval the pt was lucid, she was delusional and had poor insight and judgement Allergies: Coded Allergies: LITHIUM (Verified Allergy, Mild, Anaphylaxis, 05/24/13) MORPHINE (Verified Adverse Reaction, Unknown, itching, 05/09/15) Patient states tolerates PO morphine. IV causes itching Medication History Scheduled Albuterol Sulfate* (Albuterol Sulfate Mdi*), 2 PUFF INH Q6H Bacitracin (Bacitracin), 1 APPLIC TOPIC BID Clonazepam* (Klonopin*), 0.5 MG ORAL DAILY, (Reported) Gabapentin* (Gabapentin*), 300 MG ORAL THREE TIMES A DAY, (Reported) Gabapentin* (Gabapentin*), 300 MG ORAL THREE TIMES A DAY Lamotrigine* (Lamictal*), 125 MG ORAL DAILY, (Reported) Multivitamin (Daily Multiple Vitamin), 1 EACH PO DAILY, (Reported) Prednisone* (Prednisone*), 10 MG ORAL TID Rivaroxaban (Xarelto), 20 MG ORAL DAILY Trazodone* (Trazodone*), 50 MG ORAL BEDTIME, (Reported) Trimethoprim/Sulfamethoxazole 160/800* (Bactrim Ds Tablet*), 1 TAB ORAL Q12H Trimethoprim/Sulfamethoxazole 160/800* (Bactrim Ds Tablet*), 1 TAB ORAL Q12H Scheduled PRN Acetaminophen With Codeine (T#3) (Tylenol #3 Tab*), 1 TAB ORAL Q6HR PRN for For Pain D-Methorphan Hb/Prometh Hcl* (Promethazine-Dm Syrup*), 5 ML ORAL Q6H PRN for For Cough Hydrocodone/Acetaminophen 5-325* (Hydrocodone/Acetaminophen 5-325*), 1 TAB ORAL Q6H PRN for For Pain Patient History History Provided By: Patient, Medical Record, PMD Healthcare decision maker Resuscitation status Full Code Advanced Directive on File No Review of Systems Psychiatric: Reports: anxiety, depressed feelings, emotional problems, hallucinations, prior hx Physical Exam General Appearance: no apparent distress, alert Neurologic: alert, oriented x 3, responsive, depressed affect Last 24 Hour Vital Signs Date Time Temp Pulse Resp B/P Pulse Ox O2 Delivery O2 Flow Rate FiO2 03/26/17 18:54 97.4 03/26/17 16:00 97.4 87 19 106/61 98 Room Air 03/26/17 12:00 97.7 95 21 115/78 99 Room Air 03/26/17 10:30 97.7 96 14 120/71 100 Room Air 03/26/17 03:47 91 03/26/17 00:14 91 03/25/17 23:22 87 03/25/17 23:03 97.7 92 19 137/90 100 Room Air 78 03/25/17 22:40 97.7 78 19 137/90 100 Room Air Intake and Output 03/25/17 03/26/17 19:00 07:00 Intake Total 0 ml Output Total 175 ml Balance 0 ml -175 ml Intake Oral 0 ml Output Urine Total 175 ml Laboratory Tests Test 03/25/17 20:25 03/26/17 12:30 Urine Color Yellow Urine Appearance Clear Urine pH 8 (4.5-8.0) Urine Specific [place] 1.015 (1.005-1.035) Urine Protein Negative (NEGATIVE) Urine Glucose (UA) Negative (NEGATIVE) Urine Ketones 1+ (NEGATIVE) H Urine Occult Blood Negative (NEGATIVE) Urine Nitrite Negative (NEGATIVE) Urine Bilirubin Negative (NEGATIVE) Urine Urobilinogen 4 MG/DL (0.0-1.0) H Urine Leukocyte Esterase 1+ (NEGATIVE) H Urine RBC 0-2 /HPF (0 - 2) Urine WBC 2-4 /HPF (0 - 2) Urine Squamous Epithelial Cells Few /LPF (NONE/OCC) Urine Bacteria Few /HPF (NONE) Urine Opiates Screen Negative (NEGATIVE) Urine Barbiturates Screen Negative (NEGATIVE) Phencyclidine (PCP) Screen Negative (NEGATIVE) Urine Amphetamines Screen Positive (NEGATIVE) H Urine Benzodiazepines Screen Negative (NEGATIVE) Urine Cocaine Screen Negative (NEGATIVE) Urine Marijuana (THC) Screen Positive (NEGATIVE) H White Blood Count 5.6 K/UL (4.8-10.8) Red Blood Count 4.15 M/UL (4.20-5.40) L Hemoglobin 10.3 G/DL (12.0-16.0) L Hematocrit 33.6 % (37.0-47.0) L Mean Corpuscular Volume 81 FL (80-99) Mean Corpuscular Hemoglobin 24.9 PG (27.0-31.0) L Mean Corpuscular Hemoglobin Concent 30.8 G/DL (32.0-36.0) L Red Cell Distribution Width 16.9 % (11.6-14.8) H Platelet Count 313 K/UL (150-450) Mean Platelet Volume 6.6 FL (6.5-10.1) Neutrophils (%) (Auto) 65.6 % (45.0-75.0) Lymphocytes (%) (Auto) 23.0 % (20.0-45.0) Monocytes (%) (Auto) 9.3 % (1.0-10.0) Eosinophils (%) (Auto) 1.3 % (0.0-3.0) Basophils (%) (Auto) 0.8 % (0.0-2.0) Sodium Level 138 mEQ/L (135-145) Potassium Level 3.9 mEQ/L (3.4-4.9) Chloride Level 104 mEQ/L (98-107) Carbon Dioxide Level 22 mEQ/L (20-30) Anion Gap 12 (5-15) Blood Urea Nitrogen 7 mg/dL (7-23) Creatinine 0.6 mg/dL (0.5-0.9) Estimat Glomerular Filtration Rate > 60 mL/min (>60) Glucose Level 50 mg/dL (74-106) L Calcium Level 8.8 mg/dL (8.6-10.2) Magnesium Level 1.9 mg/dL (1.7-2.5) Iron Level 65 ug/dL (37-145) Total Iron Binding Capacity 580 ug/dL (250-400) H Percent Iron Saturation 11 % (15-50) L Unsaturated Iron Binding 515 ug/dL (112-346) H Total Bilirubin 0.3 mg/dL (0.0-1.2) Aspartate Amino Transf (AST/SGOT) 15 U/L (5-40) Alanine Aminotransferase (ALT/SGPT) 17 U/L (3-33) Alkaline Phosphatase 69 U/L (35-104) Ammonia 28 umol/L (11-51) Total Protein 7.0 g/dL (6.6-8.7) Albumin 4.2 g/dL (3.5-5.2) Globulin 2.8 g/dL Albumin/Globulin Ratio 1.5 (1.0-2.7) Vitamin B12 Level 194 pg/mL (211-946) L Vitamin D 25-Hydroxy Pending 25-Hydroxy Vitamin D2 Pending 25-Hydroxy Vitamin D3 Pending Folate Pending Thyroid Stimulating Hormone (TSH) 0.671 uIU/mL (0.300-4.500) Human Chorionic Gonadotropin, Qual Negative Height (Feet): 5 Height (Inches): 5.00 Weight (Pounds): 138 Medications Current Medications Medications (Trade) Dose Ordered Sig/Soha Route PRN Reason Start Time Stop Time Status Last Admin Dose Admin Acetaminophen (Tylenol) 650 mg Q4H PRN ORAL Mild Pain/Temp > 100.5 03/26/17 00:00 04/25/17 00:00 03/26/17 17:55 Clonazepam (KlonoPIN) 0.5 mg Q6H PRN ORAL For Anxiety 03/26/17 00:00 04/02/17 00:00 Gabapentin (Neurontin) 300 mg THREE TIMES A DAY ORAL 03/26/17 00:15 04/25/17 00:14 03/26/17 19:42 Lamotrigine 150 mg 150 mg DAILY ORAL 03/26/17 09:00 04/25/17 08:59 03/26/17 10:18 Magnesium Hydroxide (Mom) 30 ml HSPRN PRN ORAL Constipation 03/26/17 00:15 04/25/17 00:14 Rivaroxaban (Xarelto) 20 mg QPM ORAL 03/26/17 16:30 04/25/17 16:29 03/26/17 17:55 Sodium Chloride (NS w/KCl 20mEq) 1,000 ml @ 125 mls/hr Q8H IV 03/26/17 00:30 04/25/17 00:29 03/26/17 10:19 Trazodone HCl (Desyrel) 150 mg BEDTIME ORAL 03/26/17 21:00 04/25/17 20:59 Assessment/Plan Status: stable Assessment/Plan the pt is psychotic and anxious the pt has poor insight into her mental condition. the pt was reluctant to take meds. the pt maybe suffering from mild delirium as she has episodes of confusion -risperdal 2mg qhs Kenia Terrell M.D. Mar 26, 2017 19:53
[2017-03-26 20:00] VITALS: BP 116/61
[2017-03-26] MEDS: TraZODone 100mg tab ORAL SCH ×2 (20:31→20:33)
[2017-03-27] VITALS: BP 117/72
[2017-03-27] MEDS: NS w/KCl 20mEq 1,000 ML IV SCH ×2 (00:41→09:30)
--- NOTE | 2017-03-27 01:45 | Progress Note ---
DATE: 03/26/2017 INTERNAL MEDICINE PROGRESS NOTE SUBJECTIVE: Psychiatric evaluation was noted. The patient was awake, alert and today although with some delusions and poor insight as well as judgment. The patient complained of left lower tooth pain and poor appetite as well as low back pain. OBJECTIVE: VITAL SIGNS: Afebrile. Blood pressure 106/61, pulse 87, and respirations 19. HEENT: poor dentition but no focal abscess. NECK: Supple. LUNGS: Clear. CARDIAC: Regular rhythm and rate. Normal S1 and S2 with no murmur. ABDOMEN: Soft. EXTREMITIES: Trace edema. NEUROLOGIC: Nonfocal. LABORATORY DATA: Reviewed. IMPRESSION: 1. Toxic encephalopathy. 2. Depression with psychosis. 3. Possible left lower tooth caries. 4. History of deep venous thrombosis and pulmonary embolus, on chronic anticoagulation. 5. Lumbosacral strain. 6. Substance abuse. 7. Amphetamine and marijuana intoxication. 8. Prior history of cocaine intoxication. PLAN: Neuroleptics per psychiatrist, oral antibiotics for possible tooth infection. Continue full anticoagulation with rivaroxaban. X-rays of the lumbar spine. Hydrate. Withdrawal precautions. Mickey Duong M.D. DR: LUIS JOB#: [id number] CC:
[2017-03-27 04:00] VITALS: BP 111/70
[2017-03-27 06:06] LABS: KETONES,URINE NEGATIVE (NEGATIVE); LEUKOCYTE ESTERASE ,URINE 1+ (NEGATIVE); NITRITE,URINE NEGATIVE (NEGATIVE); PH,URINE 6.5 (4.5-8.0); PROTEIN,URINE NEGATIVE (NEGATIVE); UROBILINOGEN,URINE NORMAL MG/DL (0.0-1.0)
[2017-03-27 06:20] LABS: APPEARANCE,URINE CLEAR
[2017-03-27 06:22] LABS: SQUAMOUS EPITHELIAL CELL,UR FEW /LPF (NONE/OCC); WBC,URINE 0-2 /HPF (0 - 2)
[2017-03-27 07:49] VITALS: BP 105/64
--- NOTE | 2017-03-27 09:27 | Diagnostic Imaging Report ---
Indication: PAIN Technique: 4 views of the lumbar spine Comparison: None Findings: Bony alignment is normal. Your body heights are preserved. The disc spaces are preserved. Pedicles are intact. Sacral arches are preserved. Sacral iliac joint spaces are preserved surgical clips are seen in the right upper quadrant. Surgical anastomotic lydia are seen in the left upper quadrant. Impression: No acute process. Findings as noted
[2017-03-27] MEDS: LaMICtal 150mg tab ORAL SCH (09:29)
[2017-03-27] MEDS: Xarelto 10mg tab ORAL SCH (09:29)
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
[2017-03-27 15:50] VITALS: BP 109/71
[2017-03-27 20:00] VITALS: BP 104/59
[2017-03-27] MEDS: TraZODone 100mg tab ORAL SCH (21:00)
[2017-03-28] VITALS (7 sets, daily range): BP systolic 100–123; BP diastolic 57–73
[2017-03-28] MEDS: Cyclobenzaprine 10mg Tab ORAL SCH ×3 (00:30→18:23)
[2017-03-28] MEDS ORDERED: Iron Sucrose 100 MG in NS 55 ML IV ONE (02:15)
[2017-03-28] MEDS ORDERED: Cyclobenzaprine 10mg Tab ORAL SCH (09:00)
[2017-03-28] MEDS: LaMICtal 150mg tab ORAL SCH (09:02)
[2017-03-28] MEDS ORDERED: NS 275ml ONE (10:12)
--- NOTE | 2017-03-28 12:30 | Progress Note ---
DATE: 03/27/2017 INTERNAL MEDICINE PROGRESS NOTE SUBJECTIVE: The patient is more interactive and appropriate and had conversation today. Tooth pain has improved. The patient was compliant with medications other than Risperdal and trazodone. OBJECTIVE: VITAL SIGNS: Still, the patient is afebrile. NECK: Supple. LUNGS: Clear. CARDIAC: Regular. ABDOMEN: Soft. EXTREMITIES: Trace edema. IMPRESSION: 1. Substance abuse. 2. Toxic encephalopathy. 3. Bipolar disorder with psychosis. 4. Systemic lupus. 5. History of deep vein thrombosis and pulmonary embolus, on anticoagulation. 6. Severe iron deficiency. PLAN: occult blood. Add intravenous iron. Rheumatology consult to follow. Psych therapy. Withdrawal precautions. Continue antibiotics for oral caries. Outpatient dental management. Discontinue telemetry. Mickey Duong M.D. DR: Amaris JOB#: [id number] CC:
--- NOTE | 2017-03-28 12:45 | Consultation ---
DATE OF CONSULTATION: NOTE: POOR AUDIO QUALITY RHEUMATOLOGICAL CONSULTATION CONSULTING PHYSICIAN: Marley Orlando M.D. REASON FOR CONSULTATION: I was asked by Dr. Duong to assess this 41-year-old patient with admission to [facility]. HISTORY OF PRESENT ILLNESS: The patient lives own home and has been in stable condition. Over the last several months, she has a complex past medical history of connective tissue disease that includes according to the patient, lupus anticoagulant syndrome. She was found to have systemic lupus erythematosus. She was admitted because of chest tightness and swallowing disorder and the patient had a history of deep vein thrombosis in 2013 on two different occasions. She has been on Xarelto and since she did not have any hypercoagulable syndrome event over the last four years, however, she to have any pericarditis, pruritus, renal failure, hemolytic anemia, and leukopenia. No FAREBOX REPAIRER lupus. Therefore, she does not really fulfill criteria for systemic lupus. More detailed examination revealed that the patient has fibromyalgia. She has diffuse articular pain without swelling in more than 16 joints. She has morning stiffness less than 1 hour. She has a poor sleep. She wakes up tired. She has cold sensitivity. She has recent onset of concentration problem and memory problem. The patient does not have any systemic disease that can explain the joint pain of four years without any swelling or internal organ involvement. In addition, the patient that she has digit in the upper extremity ____ is exposure to cold, which by history fulfills criteria of Raynaud syndrome. previous medical history of the patient is complex autoimmune marker will be available. ALLERGIES: The patient is allergic to morphine and lithium. MEDICATIONS: The patient is on trazodone 150 mg at bedtime, risperidone 2 mg at bedtime. She is on 20 mg daily for hypercoagulable disorder. She is on lamotrigine 150 mg daily, gabapentin 300 mg t.i.d., 0.5 mg every six hours. She does take cyclobenzaprine 10 mg p.o. t.i.d., which is usually given to she has never been managed by a mailroom coordinator even though she has appointment for mailroom coordinator, but could not attend because of the distance. FAMILY HISTORY: The patient is adopted and she does not know anything about her parents. She has no brother and no sister. She has two children in good health. One child is 11 and other child is 5 years old, both and delivery were uneventful even though in the last , the patient developed preeclampsia. HABITS: The patient smokes intermittently half pack a day for more than 20 years. She had alcoholic problem until few years ago. Now, she drinks socially apparently and she does use drugs, amphetamine and cocaine. The she was using recently. REVIEW OF SYSTEMS: Cardiovascular: Currently, the patient denied any chest pain, shortness of breath, palpitation, or dizziness. Pulmonary: The patient denied any cough, wheezing, or expectoration. Gastrointestinal: Her appetite is moderate, but she said she has a history of losing 40 pounds in the last year. , she has no dysphagia and any dyspepsia. Bowel movement was daily. Genitourinary: The patient denied any dysuria or frequency. She does have stress, but not incontinence, nocturia is 2 to 3. Joint: The patient denied any swelling and stiffness is 20 to 50 minutes and resolved by . Neurologic: She has no numbness, tingling, or seizure disorder, has intermittent migraine. PHYSICAL EXAMINATION: VITAL SIGNS: Blood pressure is 104/69, pulse is 91, respirations 20, and temperature was 98.1. HEENT: Eyes were normal. Pupils were round, equal, and reactive to light. Sclerae were white. Conjunctiva was pink. Extraocular movements are normal. Temporal arteries were palpable bilaterally. There was questionable bilateral temporal wasting. Visual chávez to confrontation was normal and neglect sign was negative. ENT, mucous membranes were not dehydrated. Auditory canals were clear and tympanic membranes could not be visualized. Nasal cavity was not congested. Nasal septum was intact. Soft palate was free of ulceration. Pharynx was clear from exudate or tonsillar hypertrophy. Uvula silviano to phonation. Tongue was moist, midline, and normally papillated. NECK: Supple. There was no goiter. No mass. No lymphadenopathy. There was no JVD. No bruits. Carotid upstroke was 2+. LUNGS: Clear. HEART: PMI was in the fourth left intercostal space in midclavicular line. There was normal S1 and normal S2. There was no murmur. No arrhythmia. No S3. No S4. No pericardial rub. ABDOMEN: Soft and nontender without organomegaly. There was no mass palpable. There was normal bowel sounds without bruits. There was no guarding. No rebound tenderness. No ascites. No hernia. No CVA tenderness. Liver span was 8 cm, mostly nontender. EXTREMITIES: No cyanosis, no clubbing, and no edema. Extremities were warm. NEUROLOGIC: Reflexes in biceps, triceps, and brachioradialis were present. Patellar retinaculum were present. Plantar were in flexion. Cranial nerves II through XII were symmetric and equal. Cerebellar function, there was no tremor. No nystagmus. No extrapyramidal rigidity. Sensory exam to pinprick, cotton touch, position are grossly normal. Motor strength was 5/5 against resistance in the upper and lower extremities in proximal and distal muscles. LABORATORY AND DIAGNOSTIC DATA: Hemoglobin is 10.3, hematocrit 33.6 with MCV of 81, WBC of 5.6, and platelets of 313,000. Her BUN and creatinine is 7 and 0.6 respectively. Her sodium is 138, potassium 3.9, chloride 104, and CO2 is 22. SGOT and SGPT were normal as well as albumin and globulin. Vitamin D 25-hydroxy is pending. Folate is normal. TSH is normal. Admit head CT is negative. Her iron was 55 and saturation was 11. Urine for tox screen was positive for marijuana, was positive for amphetamine. Negative to acetone and negative for cocaine. Urine test showed 10 to 15 RBCs, 0.2 WBC per high-power field. Protein was negative. The patient had CT scan of the head, which revealed system is normal were normal. There was no evidence of intracranial bleed. There was disease. ____ impression was normal CT and minimal disease. Her chest x-ray showed no active disease. Her lumbar spine right upper quadrant of the abdomen. The patient underwent cholecystectomy 2014. IMPRESSION: I thought ___ the patient has systemic lupus. She does . She has a history of deep vein thrombosis and pulmonary emboli and the presence of lupus anticoagulant. 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 PLAN: The patient basis marker for autoimmune inflammatory will be taken. Thank you, Dr. Duong, to allow me to participate in the care of this patient. Marley Orlando M.D. DR: BUDDY JOB#: [id number] CC:
[2017-03-28] MEDS ORDERED: clonazePAM 0.5mg tab ORAL PRN (18:00)
--- NOTE | 2017-03-28 18:45 | Progress Note ---
DATE: 03/28/2017 SUBJECTIVE: The patient is doing well, was eating. No behavior issues. Calm and cooperative. The patient is hyperverbal and started on antidepressant. MENTAL STATUS EXAMINATION: The patient is alert and oriented times self, place, and situation she is in. Mood is dysphoric. Affect is constricted. Congruent mood. Thought process is concrete. Thought content, no suicidal or homicidal ideation. ASSESSMENT: Schizoaffective disorder, bipolar type versus bipolar with psychotic features. PLAN: 1. The patient will continue on current medication, which is risperidone. 2. Provide the patient with supportive therapy and reality orientation. Kenia Terrell M.D. DR: CHRISSIE JOB#: [id number] CC:
[2017-03-28] MEDS: Milk of Magnesia 30ml Ud ORAL PRN (18:55)
[2017-03-28] MEDS: TraZODone 50mg tab ORAL SCH ×2 (20:53→21:00)
[2017-03-28] MEDS ORDERED: Iron Sucrose 100 MG in NS 55 ML IV SCH ×4 (21:00)
[2017-03-29] VITALS: BP 122/66
[2017-03-29 04:00] VITALS: BP 98/62
--- NOTE | 2017-03-29 04:45 | Progress Note ---
DATE: 03/28/2017 INTERNAL MEDICINE PROGRESS NOTE SUBJECTIVE: The patient is refusing her psychiatric medications. She is interactive and verbal. Her appetite has improved. OBJECTIVE: VITAL SIGNS: Blood pressure 122/66, pulse 73, and respirations 18. HEENT: Oropharynx clear. No tender teeth. LUNGS: Clear. CARDIAC: Regular. ABDOMEN: Soft. EXTREMITIES: No edema. LABORATORY DATA: Reviewed. IMPRESSION: 1. Substance abuse status post intoxication with amphetamine. 2. Iron deficiency. 3. History of deep venous thrombosis, on anticoagulation. 4. Possible systemic lupus. 5. Fibromyalgia. 6. Depression with agitation and psychosis. 7. B12 deficiency. PLAN: 1. Iron replacement. 2. Rheumatology workup with diagnostic studies noted. They can be followed up as an outpatient. 3. Outpatient endoscopy to be planned. 4. Psychiatric followup as an outpatient. 5. The patient refuses other medications. 6. B12 supplementation initiated. Mickey Duong M.D. DR: TONE JOB#: [id number] CC:
[2017-03-29 06:09] LABS: VITAMIN D 25-OH TOTAL 16 ng/mL (.)
[2017-03-29 07:45] VITALS: BP 103/68
[2017-03-29] MEDS ORDERED: LaMICtal 150mg tab ORAL SCH (09:00)
[2017-03-29] MEDS ORDERED: Vitamin B-12 100mcg tab ORAL SCH (09:00)
[2017-03-29] MEDS: Cyclobenzaprine 10mg Tab ORAL SCH ×2 (09:07→17:07)
[2017-03-29] MEDS: Milk of Magnesia 30ml Ud ORAL PRN (09:07)
[2017-03-29 11:35] VITALS: BP 106/67
--- NOTE | 2017-03-29 12:40 | Cardiology Report ---
APPROVED REPORT EKG Measurement Heart [id number] MA [id number] Normal sinus rhythm Nonspecific T wave abnormality Prolonged QT Abnormal ECG
[2017-03-29 16:00] VITALS: BP 108/69
--- NOTE | 2017-03-29 16:06 | General Progress Note ---
Assessment/Plan Assessment/Plan bipolar d/o, schizoaffective ptsd -cont riperdal -dpesnt meet the criteria for hold -delirium resolved. Subjective Neurologic/Psychiatric: Reports: anxiety, depressed, emotional problems Allergies: Coded Allergies: LITHIUM (Verified Allergy, Mild, Anaphylaxis, 05/24/13) MORPHINE (Verified Adverse Reaction, Unknown, itching, 05/09/15) Patient states tolerates PO morphine. IV causes itching Subjective the pt doesn't believe that she need meds. poor insight, she doesn't believe she needs meds/ Objective Last 24 Hour Vital Signs Date Time Temp Pulse Resp B/P Pulse Ox O2 Delivery O2 Flow Rate FiO2 03/29/17 15:13 97.9 03/29/17 11:35 97.9 86 19 106/67 99 Room Air 03/29/17 07:45 97.7 72 19 103/68 100 Room Air 03/29/17 04:00 97.3 84 18 98/62 100 Room Air 03/29/17 00:00 97.5 73 18 122/66 100 Room Air 03/28/17 20:00 97.8 84 18 105/73 100 Room Air 03/28/17 18:55 98.4 03/28/17 18:17 98.4 80 17 100/57 99 Room Air Intake and Output 03/28/17 03/29/17 19:00 07:00 Intake Total 500 ml 510 ml Balance 500 ml 510 ml Intake Oral 500 ml 450 ml IV Total 60 ml # Voids 2 3 Height (Feet): 5 Height (Inches): 5.00 Weight (Pounds): 138 General Appearance: no apparent distress, alert, thin Neurologic: alert, oriented x 3, responsive, depressed affect Kenia Terrell M.D. Mar 29, 2017 16:06
[2017-03-29] MEDS ORDERED: Vitamin B12 1000mcg/ml Inj IM ONE (17:00)
[2017-03-29] MEDS ORDERED: Vitamin D 1000 IU Tab ORAL SCH (18:00)
--- NOTE | 2017-03-29 18:02 | Progress Note ---
DATE: 03/28/2017 SUBJECTIVE: The patient is awake, alert, afebrile, and hemodynamically stable. PHYSICAL EXAMINATION: VITAL SIGNS: Blood pressure 105/73, pulse 84, respirations 18, and temperature 97.8. HEENT: Eyes were normal. ENT, mucous membranes were moist and intact. NECK: Supple with no JVD and without lymph nodes. LUNGS: Clear. HEART: Normal sounds with regular beats. ABDOMEN: Soft and nontender with normal bowel sounds. EXTREMITIES: Warm without cyanosis, clubbing, or edema. The patient has been followed today by the primary care physician Dr. Duong. Laboratory Data: Revealed hemoglobin is 10.3, hematocrit 33.3 with MCV of 81, WBC of 5.6 and platelets 313,000. Her ESR is 34. BUN and creatinine is 7 and 0.6 respectively. Sodium was 138, potassium 3.9, chloride 104, CO2 is 22. Liver function tests are normal. Vitamin B12 normal. O2 saturation was 11. 02:23 pending and inflammatory marker are pending as well. Stool for occult blood was negative. Persantine echocardiogram 02:50 are all pending. Impression: The patient has a history of hypercoagulable disorder associated with DVT and pulmonary emboli. At the same time, the patient has positive SHELIA. 03:17 the patient does not have any internal organ involvement. Plan: She will await for the completion of 03:34 [facility]. Marley Orlando M.D. DR: KEI JOB#: [id number] CC:
[2017-03-29] MEDS ORDERED: VITAMIN D1000 UNI2 PO (18:16)
[2017-03-29] MEDS ORDERED: VITAMIN D1000 UNI1 ORAL (18:20)
[2017-03-29] MEDS ORDERED: VITAMIN B122500 MCG PO (18:22)
[2017-03-29] MEDS ORDERED: IRON325 M1 PO (18:24)
[2017-03-29] MEDS ORDERED: AMOXICILLIN500 M1 PO (18:28)
[2017-03-29] MEDS ORDERED: XARELTO20 MG ORAL (18:29)
[2017-03-29] MEDS ORDERED: Xarelto 10mg tab ORAL SCH (18:30)
[2017-03-29] MEDS ORDERED: NEURONTIN300 MG ORAL (18:32)
[2017-03-29 19:09] LABS: ANTI DNA DS ANTIBODY <1 IU/mL (0-9); ANTI-NUCLEAR ANTIBODY SCREEN Negative (Negative)
[2017-03-29 20:00] VITALS: BP 108/68
[2017-03-29] MEDS ORDERED: NS 275ml ONE (21:24)
[2017-03-29] MEDS ORDERED: Tubing IV Secondary IV ONE (21:24)
--- NOTE | 2017-03-30 03:16 | Progress Note ---
DATE: 03/29/2017 INTERNAL MEDICINE AND CARDIOLOGY PROGRESS NOTE SUBJECTIVE: The patient is awake, alert, and interactive. Compliant with care. Refusing psychiatric medications, but compliant with medical therapy. Rheumatologic workup is in progress. Outpatient followup was planned. In addition, the patient has low B12 level, low vitamin D levels, and iron deficiency. Stool occult blood was negative. OBJECTIVE: VITAL SIGNS: Blood pressure 105/70, pulse 80, and respirations 20. NECK: Supple. LUNGS: Clear. CARDIAC: Regular. Normal S1, S2 with no murmur. ABDOMEN: Soft. No edema. IMPRESSION: 1. Substance abuse. 2. Toxic encephalopathy. 3. Possible lupus. 4. Hypercoagulable state with history of deep vein thrombosis and pulmonary embolism. 5. Positive SHELIA. 6. Vitamin D deficiency, B12 deficiency, possibly due to pernicious anemia, iron deficiency. No signs of gastrointestinal bleeding at this time. PLAN: 1. Vitamin supplementation. 2. Await the final results of the rheumatologic workup. 3. Reassess as outpatient for lupus therapy based on findings. 4. Psychiatric followup. 5. The patient counseled to avoid resumption of amphetamine or cocaine use. Mickey Duong M.D. DR: GUS JOB#: [id number] CC:
--- NOTE | 2017-03-30 09:30 | Progress Note ---
DATE: 03/29/2017 NOTE: POOR AUDIO SUBJECTIVE: The patient is awake, alert, afebrile, and planned to be discharged. She is hemodynamically stable without chest pain, shortness of breath, palpitations, or dizziness. systemic lupus erythematosus criteria for systemic lupus. 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 In addition, the patient has diffuse fibromyalgia, which currently is the main symptom for her pain. discussed in detail with the patient. She was advised to be followed by a export manager and to undergo evaluation of autoimmune and inflammatory markers. She remained on the current medication. The patient Xarelto and Plaquenil. Marley Orlando M.D. DR: Marcel JOB#: [id number] CC:
--- NOTE | 2017-03-30 11:08 | Cardiology Report ---
APPROVED REPORT EXAM: Two-dimensional and M-mode echocardiogram with Doppler and color Doppler. INDICATION Pericardial disease. M-Mode DIMENSIONS IVSd1.5 (0.7-1.1cm)Left Atrium (MM)2.7 (1.6-4.0cm) LVDd3.2 (3.5-5.6cm)Aortic Root2.5 (2.0-3.7cm) PWd0.7 (0.7-1.1cm)Aortic Cusp Exc.1.9 (1.5-2.0cm) LVDs2.0 (2.5-4.0cm) PWs0.8 cm Normal left ventricular chamber size, systolic function and wall motion. Left ventricular ejection fraction estimated to be 55-60 %. Borderline mild left ventricular hypertrophy. NO PERICARDIAL EFFUSION NOTED. All other cardiac chamber sizes are within normal limits. Mild focal aortic valve sclerosis with adequate cusp excursion. Mildly thickened mitral valve leaflets with normal excursion. Mitral annulus and aortic root calcification. Pulmonic valve not well visualized. Normal tricuspid valve structure. IVC at normal size with physiologic collapse. A color flow and spectral Doppler study was performed and revealed: Trace aortic regurgitation. No mitral regurgitation. Mitral inflow indicates normal left ventricular diastolic function. Mild tricuspid regurgitation. Tricuspid systolic velocities suggests peak right ventricular systolic pressure of 37 mmHg, consistent with borderline mild pulmonary hypertension.
--- NOTE | 2017-03-30 17:12 | Discharge Summary ---
Discharge Summary Hospital Course Date of Admission Mar 25, 2017 at 19:09 Date of Discharge Mar 29, 2017 at 21:25 Admitting Diagnosis AMS HPI Laurie Grady is a 41 year old female who was admitted on Mar 25, 2017 at 19:09 for Altered Mental Status Hospital Course [id number] Discharge Discharge Disposition Patient was discharged to Home (01) Discharge Diagnoses: Allyson Calderón NP Mar 30, 2017 17:12
--- NOTE | 2017-03-30 23:00 | Discharge Summary 2 SIG ---
DATE OF ADMISSION: 03/25/2017 DATE OF DISCHARGE: 03/29/2017 CONSULTANTS: 1. Marley Orlando M.D. 2. Kenia Terrell M.D. BRIEF HOSPITAL COURSE: The patient is a 41-year-old female, who lives with her daughter. She has a longstanding history of psychiatric disorder as well as substance abuse and has been hospitalized here in the past for cocaine intoxication. She was brought in from home by EMS. Mom called EMS for behavior change. On evaluation at ED, CT of the head without contrast was normal. Chest x-ray showed no acute process and EKG revealed sinus rhythm with no acute abnormalities. Urinalysis showed 2 to 4 WBC. Toxicology screen was notable for amphetamine and marijuana. She was then admitted to telemetry for amphetamine intoxication and acute toxic encephalopathy. She was provided a sitter for safety and was placed on seizure precautions and arrhythmia precautions. She was continued on anticoagulation and underwent psychiatric evaluation with Dr. Terrell. She was assessed to be psychotic and anxious and has poor insight into her mental condition. She was reluctant to take medications. She was prescribed Risperdal, however had been refusing. The patient has a complex medical history of connective tissue disease including lupus. She was found to have SLE and had been on Xarelto. She did not fulfill the criteria for systemic lupus and more detailed examination revealed the patient has fibromyalgia with diffuse reticular pain without swelling in more than 16 joints and morning stiffness for less than one hour and poor sleep. Inflammatory markers were negative. Lupus anticoagulant and lupus panel are still pending. Urine culture showed growth of gram-negative bacillus and was given Augmentin. She was eventually discharged home. FINAL DIAGNOSES: 1. Substance abuse. 2. Acute toxic encephalopathy. 3. Possible lupus. 4. Hypercoagulable state with history of deep venous thrombosis and pulmonary embolism. 5. Vitamin D deficiency. 6. Vitamin B12 deficiency, possibly due to pernicious anemia, iron deficiency. No signs of gastrointestinal bleed at this time. 7. Bipolar disorder. 8. Schizoaffective posttraumatic stress disorder. 9. Delirium, resolved. 10. Fibromyalgia. DISPOSITION: The patient was discharged home. DISCHARGE MEDICATIONS: Refer to med list. FOLLOWUP: Follow up with PMD in a week. ACTIVITY: As tolerated. Mickey Duong M.D. I have been assigned to dictate discharge summary on this account and I was not involved in the patient's management. Allyson Calderón N.P. DR: LINDA JOB#: [id number] CC:
== END 2017-03-29 21:25 | disposition home or self-care (01) | DRG 896 ==
LOC: EDBD 18:28 → EMR 19:06 → 2E 19:09 → EDBEDREQ 22:31 → 4E 03-28 16:56
DX: F15.129 Other stimulant abuse with intoxication, unspecified (principal); G92 Toxic encephalopathy; F14.10 Cocaine abuse, uncomplicated; F25.9 Schizoaffective disorder, unspecified; M32.9 Systemic lupus erythematosus, unspecified; E86.0 Dehydration; Z86.718 Personal history of other venous thrombosis and embolism; Z79.01 Long term (current) use of anticoagulants; D50.9 Iron deficiency anemia, unspecified; E86.1 Hypovolemia; F31.9 Bipolar disorder, unspecified; F43.10 Post-traumatic stress disorder, unspecified; M79.7 Fibromyalgia; E55.9 Vitamin D deficiency, unspecified; D51.0 Vitamin B12 deficiency anemia due to intrinsic factor deficiency; Z88.6 Allergy status to analgesic agent; Z88.8 Allergy status to other drugs, medicaments and biological substances; F29 Unspecified psychosis not due to a substance or known physiological condition; F17.200 Nicotine dependence, unspecified, uncomplicated; F10.21 Alcohol dependence, in remission; Z86.711 Personal history of pulmonary embolism
CPT/HCPCS: 36415; 70450; 71010; 72110; 80053; 80300; 81001; 81003; 82009; 82140; 82270; 82306; 82607; 82746; 83540; 83550; 83735; 84443; 84703; 85025; 85613; 85651; 85730; 86039; 86140; 86225; 87086; 93005; 93306; 96360; 96361; J2405

== ENCOUNTER → 2017-05-09 | Emergency (ER) | payer MEDICARE, OTHER ==
[~2017-05-09] MED LIST changes: +AMOXICILLIN500 M1 PO; +ATIVAN1 MG ORAL; +IMITREX50 MG ORAL; +IRON325 M1 PO; +MECLIZINE HCL25 MG ORAL; +NEURONTIN300 MG ORAL; +ONDANSETRON ODT4 MG ORAL; +PROMETHAZI6.25 MG/1 ORAL; +ROBAXIN-750750 MG PO; +VITAMIN B122500 MCG PO; +VITAMIN D1000 UNI1 ORAL; +VITAMIN D1000 UNI2 PO; +XANAX0.25 MG ORAL
--- NOTE | 2017-05-09 21:27 | Emergency Room Report ---
History of Present Illness General Source: Patient, EMS Present Illness HPI A 41-year-old female with a history of drug abuse and anxiety. She called 911 she said she felt stress last anxious. She came here and then decided that she felt better and went to leave. I did not see her. She left without being triage. Allergies: Coded Allergies: LITHIUM (Verified Allergy, Mild, Anaphylaxis, 05/24/13) MORPHINE (Verified Adverse Reaction, Unknown, itching, 05/09/15) Patient states tolerates PO morphine. IV causes itching Patient History Past Medical History: see triage record, old chart reviewed Past Surgical History: other Pertinent Family History: none Social History: Reports: smoking, drug use Now: No Immunizations: other Reviewed Nursing Documentation: PMH: Agreed, PSxH: Agreed Nursing Documentation-PMH Hx Hypertension: No - PE, DVT Hx Pacemaker: No Hx Asthma: Yes Hx COPD: No Hx Diabetes: Yes Hx Cancer: No Hx Gastrointestinal Problems: Yes - Gastric bipass Hx Dialysis: No Hx Cerebrovascular Accident: No Hx Transient Ischemic Attacks: No Hx Dementia: No Hx Alzheimer's Disease: No Hx Parkinson's Disease: No Hx Meningitis: No Hx Encephalitis: No Hx Seizures: Yes Hx Epilepsy: No Hx Multiple Sclerosis: No Hx Cerebral Palsy: No Hx Amyotrophic Lat Sclerosis: No Hx [place] Syndrome: No Hx Paralysis: No Hx Peripheral Neuropathy: No Hx Spinal Cord Injury: No Hx Head Trauma: No Hx Traumatic Brain Injury: No Hx Memory Loss: No Hx Concentration Difficulty: No Hx Speech Problem: No Hx Tremors: No Hx Vertigo: No Hx Dizziness: No Hx Syncope: No Hx Headaches: No Hx Aphasia: No Hx Dysphasia: No Hx Numbness: No Hx Weakness: No Hx Fatigue: No Hx Neurologic Surgery: No Hx Brain Shunt: No Medical Decision Making Diagnostic Impression: Primary Impression: Anxiety Disposition: LEFT W/OUT BEING SEEN CANDACE PINEDA M.D. May 09, 2017 21:27
== END | disposition left against medical advice (07) ==
LOC: EDUNIT# 21:16 → EDBD 21:22 → EMR 21:43
DX: F41.9 Anxiety disorder, unspecified (principal); Z88.5 Allergy status to narcotic agent; F17.200 Nicotine dependence, unspecified, uncomplicated; E11.9 Type 2 diabetes mellitus without complications; F19.10 Other psychoactive substance abuse, uncomplicated; Z98.84 Bariatric surgery status; Z86.69 Personal history of other diseases of the nervous system and sense organs
CPT/HCPCS: 99281

== ENCOUNTER 2017-06-23 14:26 | Emergency (ER) | payer MEDICARE, OTHER ==
[~2017-06-23] VITALS: Ht 160 cm; Wt 46.3 kg
[~2017-06-23 14:26] MED LIST changes: -MECLIZINE HCL25 MG ORAL; -ROBAXIN-750750 MG PO
[2017-06-23 14:39] VITALS: BP 134/74
[2017-06-23] MEDS ORDERED: PREDNISONE20 MG ORAL (14:48)
[2017-06-23] MEDS ORDERED: ROBAXIN-750750 MG PO (14:48)
[2017-06-23] MEDS ORDERED: MECLIZINE HCL25 MG ORAL (14:48)
--- NOTE | 2017-06-23 15:20 | Emergency Room Report ---
History of Present Illness General Chief Complaint: General Complaint Source: Patient Present Illness HPI Patient presents with 2 younger children for complaints of rash Patient herself however reports that she's been having general fatigue over the past several days She reports that she probably should have seen her primary physician earlier She has felt off-and-on shortness of breath with increased exertion She has history of fibromyalgia complains of muscle spasm and cramping Denies any neck pain or photophobia denies any chest pain Allergies: Coded Allergies: LITHIUM (Verified Allergy, Mild, Anaphylaxis, 05/24/13) MORPHINE (Verified Adverse Reaction, Unknown, itching, 05/09/15) Patient states tolerates PO morphine. IV causes itching Patient History Past Medical History: see triage record Pertinent Family History: none Reviewed Nursing Documentation: PMH: Agreed, PSxH: Agreed Nursing Documentation-PMH Past Medical History: No History, Except For Hx Hypertension: No - PE, DVT Hx Pacemaker: No Hx Asthma: Yes Hx COPD: No Hx Diabetes: Yes Hx Cancer: No Hx Gastrointestinal Problems: Yes - Gastric bipass Hx Dialysis: No Hx Cerebrovascular Accident: No Hx Transient Ischemic Attacks: No Hx Dementia: No Hx Alzheimer's Disease: No Hx Parkinson's Disease: No Hx Meningitis: No Hx Encephalitis: No Hx Seizures: Yes Hx Epilepsy: No Hx Multiple Sclerosis: No Hx Cerebral Palsy: No Hx Amyotrophic Lat Sclerosis: No Hx Guillian-[place] Syndrome: No Hx Paralysis: No Hx Peripheral Neuropathy: No Hx Spinal Cord Injury: No Hx Head Trauma: No Hx Traumatic Brain Injury: No Hx Memory Loss: No Hx Concentration Difficulty: No Hx Speech Problem: No Hx Tremors: No Hx Vertigo: No Hx Dizziness: No Hx Syncope: No Hx Headaches: No Hx Aphasia: No Hx Dysphasia: No Hx Numbness: No Hx Weakness: No Hx Fatigue: No Hx Neurologic Surgery: No Hx Brain Shunt: No Review of Systems All Other Systems: negative except mentioned in HPI Physical Exam Vital Signs Date Time Temp Pulse Resp B/P (MAP) Pulse Ox O2 Delivery O2 Flow Rate FiO2 06/23/17 14:39 97.5 77 16 134/74 100 Room Air Sp02 EP Interpretation: reviewed, normal General Appearance: well appearing, no apparent distress Head: normocephalic, atraumatic Eyes: bilateral eye PERRL, bilateral eye EOMI ENT: hearing grossly normal, normal pharynx, TMs + canals normal, uvula midline Neck: full range of motion, supple, no meningismus, no bony tend Respiratory: lungs clear, normal breath sounds, no rhonchi, no respiratory distress, no retraction, no accessory muscle use Cardiovascular #1: normal peripheral pulses, regular rate, rhythm, no edema, no gallop, no JVD, no murmur Gastrointestinal: normal bowel sounds, non tender, soft, no mass, no organomegaly, non-distended, no guarding, no hernia, no pulsatile mass, no rebound Genitourinary: no CVA tenderness Musculoskeletal: normal inspection Neurologic: oriented x3, responsive, metalizing supervisor III-XII nml as tested, motor strength/ tone normal, sensory intact Psychiatric: mood/affect normal Skin: normal color, no rash, warm/dry, palpation normal Lymphatic: normal inspection, no adenopathy Medical Decision Making Diagnostic Impression: Primary Impression: myalgia ER Course Multiple differentials are considered including but not limited to cardiac cardiopulmonary, electrolyte pathology, anemia Patient had CBC and chemistry evaluated for any significant abnormalities She otherwise appears clinically well and does not appear septic or toxic has appropriate hemodynamic stability Labs Test 06/23/17 15:19 White Blood Count 5.0 K/UL (4.8-10.8) Red Blood Count 4.11 M/UL (4.20-5.40) Hemoglobin 9.6 G/DL (12.0-16.0) Hematocrit 33.4 % (37.0-47.0) Mean Corpuscular Volume 81 FL (80-99) Mean Corpuscular Hemoglobin 23.3 PG (27.0-31.0) Mean Corpuscular Hemoglobin Concent 28.7 G/DL (32.0-36.0) Red Cell Distribution Width 16.1 % (11.6-14.8) Platelet Count 320 K/UL (150-450) Mean Platelet Volume 6.3 FL (6.5-10.1) Neutrophils (%) (Auto) 44.1 % (45.0-75.0) Lymphocytes (%) (Auto) 45.2 % (20.0-45.0) Monocytes (%) (Auto) 7.4 % (1.0-10.0) Eosinophils (%) (Auto) 1.9 % (0.0-3.0) Basophils (%) (Auto) 1.4 % (0.0-2.0) Sodium Level 139 MMOL/L (136-145) Potassium Level 3.9 MMOL/L (3.5-5.1) Chloride Level 104 MMOL/L (98-107) Carbon Dioxide Level 25 MMOL/L (21-32) Anion Gap 10 mmol/L (5-15) Blood Urea Nitrogen 9 mg/dL (7-18) Creatinine 0.8 MG/DL (0.55-1.30) Estimat Glomerular Filtration Rate > 60 mL/min (>60) Glucose Level 133 MG/DL (74-106) Calcium Level 8.6 MG/DL (8.5-10.1) Total Bilirubin 0.3 MG/DL (0.2-1.0) Aspartate Amino Transf (AST/SGOT) 17 U/L (15-37) Alanine Aminotransferase (ALT/SGPT) 26 U/L (12-78) Alkaline Phosphatase 68 U/L (46-116) Total Protein 7.3 G/DL (6.4-8.2) Albumin 3.7 G/DL (3.4-5.0) Globulin 3.6 g/dL Albumin/Globulin Ratio 1.0 (1.0-2.7) Last Vital Signs Date Time Temp Pulse Resp B/P (MAP) Pulse Ox O2 Delivery O2 Flow Rate FiO2 06/23/17 14:39 97.5 16 134/74 100 Room Air 06/23/17 14:39 77 Status: unchanged Disposition: HOME, SELF-CARE Condition: Stable Scripts Prednisone* (PREDNISONE*) 20 Mg Tablet 20 MG ORAL BID, #8 TAB Prov: GUCCI SARMIENTO.OTran 06/23/17 Meclizine Hcl* (MECLIZINE*) 25 Mg Tablet 25 MG ORAL THREE TIMES A DAY, #20 TAB Prov: GUCCI SARMIENTO.OTran 06/23/17 Methocarbamol* (ROBAXIN-750*) 750 Mg Tablet 750 MG PO TID, #21 TAB 0 Refills Prov: GUCCI SARMIENTO D.O. 06/23/17 Patient Instructions: Muscle Pain, Adult Additional Instructions: Patient is provided with the discharge instructions notified to follow up with primary doctor in the next 2-3 days otherwise return to the er with any worsening symptoms. Please note that this report is being documented using [employer] technology. This can lead to erroneous entry secondary to incorrect interpretation by the dictating instrument. GUCCI SARMIENTO D.O. Jun 23, 2017 15:20
[2017-06-23 15:34] LABS: BASOPHILS % (AUTO) 1.4 % (0.0-2.0); EOSINOPHILS % (AUTO) 1.9 % (0.0-3.0); HEMATOCRIT 33.4 % (37.0-47.0); HEMOGLOBIN 9.6 G/DL (12.0-16.0); LYMPHOCYTES % (AUTO) 45.2 % (20.0-45.0); MEAN CORPUSCULAR VOLUME 81 FL (80-99); MONOCYTES % (AUTO) 7.4 % (1.0-10.0); NEUTROPHILS % (AUTO) 44.1 % (45.0-75.0); PLATELET COUNT 320 K/UL (150-450); RED BLOOD COUNT 4.11 M/UL (4.20-5.40); RED CELL DISTRIBUTION WIDTH 16.1 % (11.6-14.8)
[2017-06-23 16:00] LABS: ANION GAP 10 mmol/L (5-15); BLOOD UREA NITROGEN 9 mg/dL (7-18); CALCIUM 8.6 MG/DL (8.5-10.1); CARBON DIOXIDE 25 MMOL/L (21-32); CHLORIDE 104 MMOL/L (98-107); CREATININE 0.8 MG/DL (0.55-1.30); POTASSIUM 3.9 MMOL/L (3.5-5.1); SODIUM 139 MMOL/L (136-145)
[2017-06-23 16:05] LABS: ALANINE AMINOTRANSFERASE 26 U/L (12-78); ALBUMIN 3.7 G/DL (3.4-5.0); ALKALINE PHOSPHATASE 68 U/L (46-116); ASPARTATE AMINO TRANSFERASE 17 U/L (15-37); BILIRUBIN,TOTAL 0.3 MG/DL (0.2-1.0)
[2017-06-23 16:20] VITALS: BP 134/74
== END 2017-06-23 16:26 | disposition home or self-care (01) ==
LOC: EMR 16:22
DX: M79.1 Myalgia (principal); R21 Rash and other nonspecific skin eruption; J44.9 Chronic obstructive pulmonary disease, unspecified; Z86.718 Personal history of other venous thrombosis and embolism; Z86.711 Personal history of pulmonary embolism
CPT/HCPCS: 36415; 80053; 85025; 99284

== ENCOUNTER 2017-07-01 00:37 | Emergency (ER) | payer MEDICARE, OTHER ==
[~2017-07-01] VITALS: Ht 162.6 cm; Wt 65.8 kg
[2017-07-01 00:25] VITALS: BP 106/69
[~2017-07-01 00:37] MED LIST changes: +MECLIZINE HCL25 MG ORAL; +ROBAXIN-750750 MG PO
--- NOTE | 2017-07-01 00:57 | Emergency Room Report ---
History of Present Illness General Chief Complaint: Pain Source: Patient, Medical Record, EMS Present Illness HPI This is a 41-year-old female whose been here multiple time in the past. She was under the name of Laurie Grady. She has a history of DVT and just started back on Xarelto for the last 2 weeks. Said she missed the last couple days. She woke up with chief complaint of right leg pain that go to the groin. Said hard time opening it. [place] like spasm. Also complaining of pain to the whole left side of her body. She does have a history of fibromyalgia. She did have what before. She denies any alcohol or drug use. No nausea no vomiting. She called 911. Allergies: Coded Allergies: LITHIUM (Verified Allergy, Unknown, 07/01/17) Patient History Past Medical History: see triage record, old chart reviewed Past Surgical History: other Pertinent Family History: none Social History: Denies: smoking, alcohol use, drug use Last Menstrual Period: jun 13 2017 Now: No Immunizations: other Reviewed Nursing Documentation: PMH: Agreed, PSxH: Agreed Nursing Documentation-PMH Past Medical History: No History, Except For Review of Systems Eye: Denies: eye pain, blurred vision ENT: Denies: ear pain, nose congestion, throat swelling Respiratory: Denies: cough, shortness of breath Cardiovascular: Denies: chest pain, palpitations Gastrointestinal: Denies: abdominal pain, diarrhea, nausea, vomiting Musculoskeletal: Reports: joint pain, muscle pain, Denies: back pain Skin: Denies: rash Neurological: Denies: headache, numbness Endocrine: Denies: increased thirst, increased urine Hematologic/Lymphatic: Denies: easy bruising All Other Systems: negative except mentioned in HPI Physical Exam Vital Signs Date Time Temp Pulse Resp B/P (MAP) Pulse Ox O2 Delivery O2 Flow Rate FiO2 07/01/17 00:18 97.5 81 16 106/69 97 Room Air vitals normal Sp02 EP Interpretation: reviewed, normal General Appearance: well appearing, no apparent distress, alert Head: normocephalic, atraumatic Eyes: bilateral eye PERRL, bilateral eye EOMI ENT: hearing grossly normal, normal pharynx Neck: full range of motion, supple, no meningismus Respiratory: chest non-tender, lungs clear, normal breath sounds Cardiovascular #1: regular rate, rhythm, no murmur Gastrointestinal: normal bowel sounds, non tender, no mass, no organomegaly, no bruit, non-distended Musculoskeletal: back normal, gait/station normal, normal range of motion, tender - To right inner thigh Psychiatric: mood/affect normal Skin: warm/dry Medical Decision Making Diagnostic Impression: Primary Impression: Right leg pain ER Course She presents with right leg pain. No evidence of DVT per stock holder. Most likely muscle skeletal or muscle spasm she she slept with her leg over the arm rest. No evidence of deformity. We'll discharge him. CT/MRI/US Diagnostic Results CT/MRI/US Diagnostic Results : Imaging Test Ordered: Right leg ultrasound Impression negative per stock holder Last Vital Signs Date Time Temp Pulse Resp B/P (MAP) Pulse Ox O2 Delivery O2 Flow Rate FiO2 07/01/17 00:25 97.5 75 16 106/69 97 Room Air Status: improved Disposition: HOME, SELF-CARE Condition: Stable Patient Instructions: PAIN, Uncertain Cause (Acute) Additional Instructions: Followup with your DrTran in 7 days. Return if worse. CANDACE PINEDA M.D. Jul 01, 2017 00:57
[2017-07-01 01:11] VITALS: BP 106/69
--- NOTE | 2017-07-05 23:10 | Diagnostic Imaging Report ---
APPROVED REPORT CPT Code: 89789 Present Symptoms Lower Extremity Pain: Right RIGHT LEG: Venous imaging reveals a patent deep venous system. There is no evidence of thrombus within the femoral, popliteal or tibial segments. The greater saphenous vein is also within normal limits. Doppler indicates normal spontaneous flow within these segments.
== END 2017-07-01 01:30 | disposition home or self-care (01) ==
LOC: EDBD 00:37 → EMR 01:22 → MERGE 01:22 → EMR 01:30
DX: M79.604 Pain in right leg (principal); Z86.718 Personal history of other venous thrombosis and embolism
CPT/HCPCS: 80307; 93971; 99284